=== PATIENT | female | born 1955 | race Caucasian/White ===

== ENCOUNTER 2016-12-29 15:33 | Emergency (ER) | payer OTHER ==
--- NOTE | 2016-12-29 17:07 | XRAY Preliminary Report ---
Exam: XR Wrist 4 View LT IMPRESSION: Normal wrist radiography. [facility] SITE ID: [id number]
--- NOTE | 2016-12-29 17:09 | XRAY Report ---
EXAM: LEFT WRIST RADIOGRAPHY EXAM DATE: 12/29/2016 04:32 PM. CLINICAL HISTORY: Fall, with wrist injury/pain. COMPARISON: None. TECHNIQUE: 4 views. FINDINGS: Bones: Normal. No fractures or bone lesions. Joints: Normal. No subluxations. Soft Tissues: Normal. No soft tissue swelling. IMPRESSION: Normal wrist radiography. [facility] Referring Provider Line: [phone] SITE ID: [id number]
[2016-12-29] MEDS ORDERED: ACETAMINOPHEN 325 MG TABLET PO STA (18:15)
[2016-12-29] MEDS ORDERED: ACETAMINOPHEN 325 MG TABLET PO ONE (18:21)
--- NOTE | 2016-12-29 18:23 | ED Physician Documentation ---
History of Present Illness - Stated complaint Stated Complaint: LEFT WRIST INJ - Chief complaint Chief Complaint: Ext Problem - Additonal information Additional information: hx from pt 61 f right handed mechanical fall husrt ant radial aspect L wrist no sig other injuries Review of Systems Musculoskeletal: reports: Joint pain PD PAST MEDICAL HISTORY - Past Medical History Past Medical History: No - Past Surgical History Past Surgical History: Yes /PUBLIC DEFENDER: section - Present Medications Home Medications: Ambulatory Orders Medication Instructions Recorded Confirmed No Known Home Medications [No 12/29/16 12/29/16 Known Home Medications] - Allergies Allergies/Adverse Reactions: Allergies Allergy/AdvReac Type Severity Reaction Status Date / Time Iodine and Iodide Containing Allergy Rash Verified 12/29/16 16:01 Produc Sulfa (Sulfonamide Allergy Rash Verified 12/29/16 16:01 Antibiotics) - Social History Does the pt smoke?: No Smoking Status: Never smoker Does the pt drink ETOH?: Yes Does the pt have substance abuse?: No PD ED PE NORMAL - Vitals Vital signs reviewed: Yes - Extremities Extremities: Other (L wrist mild swellign, TTP ant lateral wrist, limited ROM 2/ 2 pain, motor intact, sensation intct but reports tingling to all fingers, + cap refill and radial pulse) Results - Vitals Vitals: Vital Signs - 24 hr 12/29/16 12/29/16 16:00 17:31 Temperature 37.1 C Heart Rate 97 74 Respiratory 18 16 Rate Blood Pressure 157/84 H 167/90 H O2 Saturation 98 98 Oxygen O2 Source Room air Departure - Departure Disposition: 01 Home, Self Care Clinical Impression: Sprain of wrist, left Qualifiers: Encounter type: initial encounter Qualified Code(s): S63.502A - Unspecified sprain of left wrist, initial encounter Condition: Good Instructions: ED Sprain Wrist Comments: The xrays show no fracture. That does not mean there is no injury You have likely sprained your wrist and that can be very painful Recommend you wear the splint for support, ice and elevation will help the swelling, motrin and tylenol for the pain. If not better in two weeks, please follow up with your PMD for a recheck Also please get your blood pressure rechecked - it was high today
[2016-12-29 18:32] VITALS: BP 150/80
== END 2016-12-29 18:34 | disposition home or self-care (01) ==
LOC: ED 15:33
DX: S63.502A Unspecified sprain of left wrist, initial encounter (principal); W18.30XA Fall on same level, unspecified, initial encounter; Y93.01 Activity, walking, marching and hiking; Y92.007 Garden or yard of unspecified non-institutional (private) residence as the place of occurrence of the external cause
CPT/HCPCS: 73110; 99282; 99283; A9270

== ENCOUNTER 2017-12-31 07:18 | Outpatient (CLI) | payer OTHER ==
[2017-12-31] MEDS ORDERED: IOPAMIDOL-300 50 ML VIAL ONE (07:28)
[2017-12-31] MEDS ORDERED: IOPAMIDOL-300 100 ML VIAL ONE (07:28)
--- NOTE | 2017-12-31 17:16 | CT Report ---
Reason: L SIDED ABD PAIN Procedure Date: 12/31/2017 Accession Number: [id number] / [id number] Procedure: CT - Abdomen/Pelvis W/ CPT Code: FULL RESULT: EXAM: CT ABDOMEN AND PELVIS EXAM DATE: 12/31/2017 09:44 AM. CLINICAL HISTORY: Left sided abdominal pain. COMPARISONS: None. TECHNIQUE: Routine helical CT imaging was performed through the abdomen and pelvis. IV contrast: CE. Enteric contrast: No. Reconstructions: Coronal and sagittal. In accordance with CT protocol optimization, one or more of the following dose reduction techniques were utilized for this exam: automated exposure control, adjustment of mA and/or KV based on patient size, or use of iterative reconstructive technique. FINDINGS: Lung Bases: Unremarkable. Liver: Normal. No masses. Gallbladder/Bile Ducts: Unremarkable. Spleen: Normal. Pancreas: Normal. Adrenal Glands: Normal. Kidneys: Normal. No masses or hydronephrosis. Peritoneal Cavity/Bowel: There is focal thickening of the ascending colon with only minimal associated fat stranding (right hemicolon).There is also mild thickening of the descending colon which is devoid of content. No free fluid, free air or adenopathy. No masses or acute inflammatory process. The appendix is well visualized and normal. Pelvic Organs: Normal. The bladder and visualized pelvic organs are within normal limits. Vasculature: No aneurysms or other significant abnormality. Bones: No significant abnormality. Other: None. IMPRESSION: Nonspecific colonic thickening in the ascending and descending colon with an empty descending colon. Findings are most suggestive of nonspecific colitis likely with diarrhea. There are no specific findings to favor infectious versus inflammatory versus ischemic etiologies. [facility]
[2018-01-05] MEDS ORDERED: IOPAMIDOL-300 50 ML VIAL PO ONE (09:06)
[2018-01-05] MEDS ORDERED: IOPAMIDOL-300 100 ML VIAL IVP ONE (09:06)
== END 2017-12-31 07:19 | disposition home or self-care (01) ==
LOC: DI 07:18
PROVIDERS: ATTEND Specialist
DX: R10.9 Unspecified abdominal pain (principal)
CPT/HCPCS: 74177; Q9967

== ENCOUNTER 2018-10-19 20:53 | Outpatient (CLI) | payer OTHER | END 2018-10-19 20:54 | disposition short-term general hospital (02) | LOC: EMS 20:53 | PROVIDERS: ATTEND Surgery | DX: S99.911A Unspecified injury of right ankle, initial encounter (principal); W10.9XXA Fall (on) (from) unspecified stairs and steps, initial encounter; Y92.009 Unspecified place in unspecified non-institutional (private) residence as the place of occurrence of the external cause | CPT/HCPCS: A0425; A0429 ==